=== PATIENT | male | born 1975 | race Caucasian/White ===

== ENCOUNTER 2017-04-15 23:25 | Emergency (ER) | payer SELFPAY ==
[~2017-04-15] VITALS: Ht 177.8 cm; Wt 104.5 kg
[~2017-04-15 23:25] MED LIST: HYDROCODON-ACE1 EAC7 PO; MOTRIN600 MG PO; MOTRIN800 MG PO; ON NO MEDS; VICODIN 5-3001 EACH PO; VICODIN,LORT1 TABLET PO
[2017-04-16] MEDS ORDERED: CLINDAMYCIN HC300 MG PO (02:18)
[2017-04-16] MEDS ORDERED: NAPROSYN500 MG PO (02:18)
[2017-04-16] MEDS ORDERED: NORCO 5/3251 TABLET PO (02:18)
[2017-04-16 02:58] VITALS: BP 122/80
== END 2017-04-16 02:59 | disposition home or self-care (01) ==
LOC: EME 23:25
DX: K04.7 Periapical abscess without sinus (principal); F17.200 Nicotine dependence, unspecified, uncomplicated